=== PATIENT | female | born 2000 | race Two or more races ===

== ENCOUNTER 2022-01-20 08:14 | Emergency (ER) | payer OTHER ==
[~2022-01-20] VITALS: Ht 167.6 cm; Wt 48.1 kg
[2022-01-20] MEDS ORDERED: SERTRALINE HCL100 MG PO (08:29)
[2022-01-20] MEDS ORDERED: CLONAZEPAM0.5 MG PO (08:29)
== END 2022-01-20 12:04 | disposition home or self-care (01) ==
LOC: ER 08:14
DX: K52.9 Noninfective gastroenteritis and colitis, unspecified (principal)